=== PATIENT | female | born 1965 | race Caucasian/White ===

== ENCOUNTER 2018-07-23 06:25 | Day surgery (SDC) | payer MEDICAID, OTHER ==
[2018-07-23] MEDS ORDERED: Sodium Chloride 0.9% 1,000 ML IV SCH (06:30)
[2018-07-23] MEDS ORDERED: Midazolam 1 MG/ML 2 ML SDV ONE (07:46)
[2018-07-23] MEDS ORDERED: fentaNYL 100 MCG/2 ML SDV ONE (07:46)
[2018-07-23] MEDS ORDERED: Propofol 200 MG/20 ML SDV ONE (07:46)
--- NOTE | 2018-07-23 09:33 | OR ---
DATE OF PROCEDURE: 07/23/2018 PROCEDURE: Colonoscopy. FINDINGS: 1. Diverticulosis, moderate, mostly limited to the remnant of the sigmoid colon and descending colon. 2. Anastomosis in the area of the sigmoid colon without any evidence of abnormalities. COMPLICATIONS: None. 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 ANESTHESIA: MAC. RISKS: Risks, benefits, alternatives, and limitations including, but not limited to, infection, bleeding, and perforation were explained to the patient, who wished to proceed. PROCEDURE IN DETAIL: The patient was placed in a left lateral decubitus position. Digital rectal exam was performed without abnormality. The scope was introduced and advanced atraumatically to the ileocecal valve. A photo was taken of this. The scope was brought back through the ascending, transverse, descending, and rectum, and retroflexed. No polyps, no masses, no evidence of old or new blood. The patient tolerated the procedure well. Oscar Contreras MD /[id number]
== END 2018-07-23 09:25 | disposition home or self-care (01) ==
LOC: JP.SDS 06:25
PROVIDERS: ATTEND Surgery
DX: Z12.11 Encounter for screening for malignant neoplasm of colon (principal); K57.30 Diverticulosis of large intestine without perforation or abscess without bleeding; I10 Essential (primary) hypertension; E66.01 Morbid (severe) obesity due to excess calories; Z68.41 Body mass index [BMI] 40.0-44.9, adult; Z90.49 Acquired absence of other specified parts of digestive tract
CPT/HCPCS: J2250; J2704; J3010; J7030

== ENCOUNTER 2022-09-08 18:05 | Emergency (ER) | payer BC, MEDICAID ==
[2022-09-08] MEDS ORDERED: Sodium Chloride 0.9% 10 ML Syringe FLUSH PRN (18:49)
[2022-09-08] MEDS ORDERED: Sodium Chloride 0.9% 1,000 ML IV SCH (19:00)
== END 2022-09-08 20:01 | disposition home or self-care (01) ==
LOC: JP.ED 18:05
DX: R79.9 Abnormal finding of blood chemistry, unspecified (principal); I10 Essential (primary) hypertension; Z88.0 Allergy status to penicillin; Z88.8 Allergy status to other drugs, medicaments and biological substances; Z88.7 Allergy status to serum and vaccine
CPT/HCPCS: 36415; 71046; 71046-26; 82310; 82330; 83735; 93005; 99285